=== PATIENT | female | born 2000 | race Caucasian/White ===

== ENCOUNTER 2020-09-29 02:35 | Emergency (ER) | payer BC, OTHER ==
[~2020-09-29] VITALS: Ht 170.2 cm; Wt 68.0 kg
--- NOTE | ~2020-09-29 | EMS ---
[address] [address] EMS Patient Care Report Name: WILDER LEE Room #: REG FANNIE Alvarado#: [id number] Admission: 09/29/20 Attend Phys: Discharge: Date of : [birth year] Report #: [id number] THIS REPORT FOR: //name// Report Transmitted: 09/29/2020 04:24 EMS Care Summary [facility] Incident [id number] @ 09/29/2020 01:50 Incident Location [address]/[place] [address] Patient WILDER LEE Female, 19 Years 2000 Patient Address [address] [place] [address] Patient History None Reported, Patient Allergies Penicillin allergy,Fentanyl, Patient Medications Oxycodone, Chief Complaint Fall with hip pain Disposition Transported No Lights/[place] Dispatch Reason Falls Transported To [facility] Narrative [facility] dispatched for a female with hip pain after a fall. Pt has a hx of a wound on her lower back and has been taking pain medication to help. Pt stated that [address] [address] EMS Patient Care Report Name: WILDER LEE Room #: REG FANNIE Alvarado#: [id number] Admission: 09/29/20 Attend Phys: Discharge: Date of : [birth year] Report #: [id number] she was walking with her mother from the bathroom to the bedroom when she became weak and fell to the floor. Pt denies remembering falling but the mother stated that she did not lose consciousness. Pt fell to her left side and EMS was called. On scene found the pt lying on her left side complaining of hip pain. Pt was Ao4. Airway was patent and free from obstruction. Breathing was non labored with bilateral chest rise and fall. Skin was pink warm and dry. Pt stated she had pain on palpation of the neck. primary assessment showed neck and hip pain. Pt was placed on a scoop stretcher and moved to the ambulance. Pt was placed on the cot and secured with all straps. Pt taken to the ambulance. In the ambulance the pt was given an IV for med route. Pain meds were considered but withheld due to Fentanyl allergy and the pt taking 5/325 doses of oxycodone. Pt was placed in a C-Collar prior to the beginning of transport. Pt vitals were taken and monitored. Pt remained AO4. Airway was clear and breathing was within normal limits. Skin was pink warm and dry. Pt was taken to [facility]. Pt was taken to room 11 on arrival and verbal report was given to nurse. Pt signed for herself and EMS returned to service. Initial Vitals @02:27P: 65,R: 18,BP: 95/58,Pain: 6/10,GCS: 15,SpO2: 99,Revised Trauma: 12, @02:13P: 61,R: 18,BP: 111/73,Pain: 8/10,GCS: 15,SpO2: 99,Revised Trauma: 12, Assessments @02:10MENTAL:Person Oriented,Time Oriented,Place Oriented,Event Oriented,SKIN:HEENT:Head/Face: No Abnormalities,Neck/Airway: No Abnormalities,LUNG SOUNDS:General: No Abnormalities,ABDOMEN:General: No Abnormalities,PELVIS//GI:No Abnormalities,EXTREMITIES:Left Arm: No Abnormalities,Right Arm: No Abnormalities,Left Leg: No Abnormalities,Right Leg: No Abnormalities,PULSE:NEURO:No Abnormalities,@02:21MENTAL:Person Oriented,Event Oriented,Time Oriented,Place Oriented,SKIN:HEENT:Head/Face: No Abnormalities,Neck/Airway: No Abnormalities,LUNG SOUNDS:General: No Abnormalities,ABDOMEN:General: No Abnormalities,PELVIS//GI:EXTREMITIES:PULSE:NEURO: Impression Injury of Hip Procedures @02:10ALS AssessmentResponse: UnchangedSucceeded@02:19ALS AssessmentResponse: UnchangedSucceeded@02:13Normal Saline (.9% NaCl) 10cc (20 ga) Site: Antecubital-RightResponse: UnchangedSucceeded Timeline 01:47,[place] [address] EMS Patient Care Report Name: WILDER LEE Room #: REG FANNIE Alvarado#: [id number] Admission: 09/29/20 Attend Phys: Discharge: Date of : [birth year] Report #: [id number] 01:47,Psap Call 01:50,Dispatched 01:51,En Route 01:54,On Scene 01:56,At Patient 02:10,ALS Assessment,Response: UnchangedSucceeded, 02:10,Depart Scene 02:13,Normal Saline (.9% NaCl) 10cc 20 ga Site: Antecubital-Right,Response: UnchangedSucceeded, 02:13,BP: 111/73 M,PULSE: 61,RR: 18 R,SPO2: 99 Ox,ETCO2: ,BG: ,PAIN: 8,GCS: 15, 02:19,ALS Assessment,Response: UnchangedSucceeded, 02:27,BP: 95/58 M,PULSE: 65,RR: 18 R,SPO2: 99 Ox,ETCO2: ,BG: ,PAIN: 6,GCS: 15, 02:30,At Destination 03:06,Call Closed Disclaimer v1.1 Copyright 2020 [employer] This EMS Care Summary contains data elements from the applicable legal record (which may be displayed differently). It is designed to provide pertinent information for the following purposes: continuity of care, clinical quality, and state data reporting. The complete legal record is available to ED staff and administrators of the receiving hospital in ES's Patient Tracker. All data is provided "as is."
--- NOTE | ~2020-09-29 | EMS ---
[address] [address] EMS Patient Care Report Name: WILDER LEE Room #: REG FANNIE Alvarado#: [id number] Admission: 09/29/20 Attend Phys: Discharge: Date of : [birth year] Report #: [id number] THIS REPORT FOR: //name// Report Transmitted: 09/29/2020 03:36 EMS Care Summary [facility] Incident [id number] @ 09/29/2020 01:50 Incident Location [address]/[place] [address] Patient WILDER LEE Female, 19 Years 2000 Patient Address [address] [place] [address] Patient History None Reported, Patient Allergies Penicillin allergy,Fentanyl, Patient Medications Oxycodone, Chief Complaint Fall with hip pain Disposition Transported No Lights/[place] Dispatch Reason Falls Transported To [facility] Narrative [facility] dispatched for a female with hip pain after a fall. Pt has a hx of a wound on her lower back and has been taking pain medication to help. Pt stated that [address] [address] EMS Patient Care Report Name: WILDER LEE Room #: REG FANNIE Alvarado#: [id number] Admission: 09/29/20 Attend Phys: Discharge: Date of : [birth year] Report #: [id number] she was walking with her mother from the bathroom to the bedroom when she became weak and fell to the floor. Pt denies remembering falling but the mother stated that she did not lose consciousness. Pt fell to her left side and EMS was called. On scene found the pt lying on her left side complaining of hip pain. Pt was Ao4. Airway was patent and free from obstruction. Breathing was non labored with bilateral chest rise and fall. Skin was pink warm and dry. Pt stated she had pain on palpation of the neck. primary assessment showed neck and hip pain. Pt was placed on a scoop stretcher and moved to the ambulance. Pt was placed on the cot and secured with all straps. Pt taken to the ambulance. In the ambulance the pt was given an IV for med route. Pain meds were considered but withheld due to Fentanyl allergy and the pt taking 5/325 doses of oxycodone. Pt was placed in a C-Collar prior to the beginning of transport. Pt vitals were taken and monitored. Pt remained AO4. Airway was clear and breathing was within normal limits. Skin was pink warm and dry. Pt was taken to [facility]. Pt was taken to room 11 on arrival and verbal report was given to nurse. Pt signed for herself and EMS returned to service. Initial Vitals @02:27P: 65,R: 18,BP: 95/58,Pain: 6/10,GCS: 15,SpO2: 99,Revised Trauma: 12, @02:13P: 61,R: 18,BP: 111/73,Pain: 8/10,GCS: 15,SpO2: 99,Revised Trauma: 12, Assessments @02:10MENTAL:Person Oriented,Time Oriented,Place Oriented,Event Oriented,SKIN:HEENT:Head/Face: No Abnormalities,Neck/Airway: No Abnormalities,LUNG SOUNDS:General: No Abnormalities,ABDOMEN:General: No Abnormalities,PELVIS//GI:No Abnormalities,EXTREMITIES:Left Arm: No Abnormalities,Right Arm: No Abnormalities,Left Leg: No Abnormalities,Right Leg: No Abnormalities,PULSE:NEURO:No Abnormalities,@02:21MENTAL:Person Oriented,Event Oriented,Time Oriented,Place Oriented,SKIN:HEENT:Head/Face: No Abnormalities,Neck/Airway: No Abnormalities,LUNG SOUNDS:General: No Abnormalities,ABDOMEN:General: No Abnormalities,PELVIS//GI:EXTREMITIES:PULSE:NEURO: Impression Injury of Hip Procedures @02:10ALS AssessmentResponse: UnchangedSucceeded@02:19ALS AssessmentResponse: UnchangedSucceeded@02:13Normal Saline (.9% NaCl) 10cc (20 ga) Site: Antecubital-RightResponse: UnchangedSucceeded Timeline 01:47,[place] [address] EMS Patient Care Report Name: WILDER LEE Room #: REG FANNIE Alvarado#: [id number] Admission: 09/29/20 Attend Phys: Discharge: Date of : [birth year] Report #: [id number] 01:47,Psap Call 01:50,Dispatched 01:51,En Route 01:54,On Scene 01:56,At Patient 02:10,ALS Assessment,Response: UnchangedSucceeded, 02:10,Depart Scene 02:13,Normal Saline (.9% NaCl) 10cc 20 ga Site: Antecubital-Right,Response: UnchangedSucceeded, 02:13,BP: 111/73 M,PULSE: 61,RR: 18 R,SPO2: 99 Ox,ETCO2: ,BG: ,PAIN: 8,GCS: 15, 02:19,ALS Assessment,Response: UnchangedSucceeded, 02:27,BP: 95/58 M,PULSE: 65,RR: 18 R,SPO2: 99 Ox,ETCO2: ,BG: ,PAIN: 6,GCS: 15, 02:30,At Destination 03:06,Call Closed Disclaimer v1.1 Copyright 2020 [employer] MD This EMS Care Summary contains data elements from the applicable legal record (which may be displayed differently). It is designed to provide pertinent information for the following purposes: continuity of care, clinical quality, and state data reporting. The complete legal record is available to ED staff and administrators of the receiving hospital in ES's Patient Tracker. All data is provided "as is."
[2020-09-29] MEDS ORDERED: VENLAFAXINE HC150 MG PO (02:53)
[2020-09-29] MEDS ORDERED: PERCOCET 5-3251 EACH PO (02:53)
[2020-09-29 03:23] LABS: HEMATOCRIT 32.8 % (37.0-47.0); HEMOGLOBIN 10.8 gm/dL (12.0-15.0); MCH 30.2 pg (26.0-34.0); MCV 91.6 fL (80.0-100.0); RBC 3.58 mil/uL (4.20-5.00); RDW 13.9 % (10.5-14.5); WBC 5.9 thou/uL (4.0-11.0)
[2020-09-29 03:29] LABS: CREATININE 0.6 mg/dL (0.6-1.0); POTASSIUM 3.7 mmol/L (3.5-5.1)
[2020-09-29 05:24] VITALS: BP 90/54
--- NOTE | 2020-09-29 07:38 | EKG ---
[facility] [place] [address] ELECTROCARDIOGRAM REPORT Name: WILDER LEE Room #: DEP [facility]#: [id number] Admission: 09/29/20 Attend Phys: Discharge: 09/29/20 Date of : [birth year] Report #: [id number] THIS REPORT FOR: cc: Miquel Savage Damon DO Santiago, Patrick MD [facility] ~ THIS REPORT FOR: //name// [facility] ED Test Date: 2020-09-29 Test Time: 04:09:47 Pat Name: WILDER LEE Department: Room: Gender: F Powerplant Operator: liv quarles rn : 2000 Requested By: Joe Rojas Order Number: [id number] : Clay Wyman Measurements Intervals [place] Rate: 64 P: 65 [place]: 130 QRS: 66 QRSD: 126 T: 62 QT: 422 QTc: 436 Interpretive Statements Sinus rhythm No previous ECG available for comparison Electronically Signed On 09-29-2020 7:38:10 CHILD NURSE by Clay Wyman [email or web address] <ELECTRONICALLY SIGNED> By: Clay Wyman MD, FACC 09/29/20 [id number] Clay Wyman MD, FACC /EPI
== END 2020-09-29 05:32 | disposition home or self-care (01) ==
LOC: ER 02:35
PROVIDERS: Emergency Medicine
DX: S40.012A Contusion of left shoulder, initial encounter (principal); S70.02XA Contusion of left hip, initial encounter; R51.9 Headache, unspecified; M54.2 Cervicalgia; R55 Syncope and collapse; F17.210 Nicotine dependence, cigarettes, uncomplicated; Z79.899 Other long term (current) drug therapy; Z88.8 Allergy status to other drugs, medicaments and biological substances; Z88.0 Allergy status to penicillin; W19.XXXA Unspecified fall, initial encounter; Y93.89 Activity, other specified; Y92.098 Other place in other non-institutional residence as the place of occurrence of the external cause; Y99.8 Other external cause status